=== PATIENT | female | born 1985 | race Asian ===

== ENCOUNTER 2020-05-22 10:31 | Outpatient (CLI) | payer OTHER | END 2020-05-22 20:26 | disposition home or self-care (01) | LOC: MLB 10:31 | DX: N92.5 Other specified irregular menstruation (principal) | CPT/HCPCS: 84703 ==

== ENCOUNTER 2020-08-02 12:08 | Outpatient (CLI) | payer OTHER ==
[2020-08-02 13:22] LABS: APPEARANCE,URINE CLEAR (CLEAR); BILIRUBIN,URINE NEGATIVE (NEGATIVE); BLOOD, URINE NEGATIVE (NEGATIVE); COLOR,URINE YELLOW (YELLOW); LEUKOCYTE ESTERASE ,URINE NEGATIVE (NEGATIVE); NITRITE, URINE NEGATIVE (NEGATIVE); UGLUCOSE NEGATIVE (NEGATIVE)
== END 2020-08-02 16:22 | disposition home or self-care (01) ==
LOC: MLB 12:08
PROVIDERS: ATTEND Obstetrics & Gynecology
DX: R30.9 Painful micturition, unspecified (principal)
CPT/HCPCS: 81003; 87086

== ENCOUNTER 2020-08-31 07:42 | Outpatient (CLI) | payer OTHER ==
[2020-08-31 08:50] LABS: BASOPHILS # (AUTO) 0.1 K/uL (0.00-0.22); BASOPHILS % (AUTO) 0.6 % (0.0-2.0); EOSINOPHILS # (AUTO) 0.1 K/uL (0-0.4); EOSINOPHILS % (AUTO) 1.1 % (0.0-4.0); LYMPHOCYTES # (AUTO) 1.5 K/uL (2.5-16.5); LYMPHOCYTES % (AUTO) 13.5 % (20.5-51.1); MEAN CORPUSCULAR HEMOGLOBIN 32 pg (27-31); MEAN CORPUSCULAR HGB CONC 34 g/dL (33-37); MEAN CORPUSCULAR VOLUME 92.5 fL (80-94); MONOCYTES # (AUTO) 0.5 K/uL (0.8-1.0); MONOCYTES % (AUTO) 4.2 % (1.7-9.3); NEUTROPHILS # (AUTO) 8.8 K/uL (1.8-7.7); NEUTROPHILS % (AUTO) 80.6 % (42.2-75.2); PLATELET COUNT (AUTO) 246 K/uL (140-450); RED BLOOD CELL COUNT(AUTO) 4.11 MIL/uL (4.20-5.40); RED CELL DISTRIBUTION WIDTH 13.4 % (11.6-13.7); WHITE BLOOD COUNT (AUTO) 10.9 K/uL (4.8-10.8)
[2020-09-01 08:07] LABS: HEPATITIS B SURFACE ANTIBODY Non Reactive (.)
[2020-09-01 13:35] LABS: RAPID PLASMA REAGIN NON-REACTIVE (Non Reactiv)
== END 2020-08-31 20:40 | disposition home or self-care (01) ==
LOC: MLB 07:42
PROVIDERS: ATTEND Obstetrics & Gynecology
DX: N30.00 Acute cystitis without hematuria (principal); Z11.3 Encounter for screening for infections with a predominantly sexual mode of transmission
CPT/HCPCS: 36415; 83036; 84702; 85025; 86592; 86706; 86762; 86900; 86901; 87086

== ENCOUNTER 2021-03-22 10:43 | Outpatient (CLI) | payer OTHER ==
[2021-03-22 11:11] LABS: BASOPHILS % (AUTO) 0.6 % (0.0-2.0); EOSINOPHILS # (AUTO) 0.1 K/uL (0-0.4); HEMATOCRIT 45.2 % (36-48); HEMOGLOBIN 14.9 g/dL (12.0-16.0); LYMPHOCYTES # (AUTO) 1.9 K/uL (2.5-16.5); LYMPHOCYTES % (AUTO) 32.7 % (20.5-51.1); MEAN CORPUSCULAR HEMOGLOBIN 31 pg (27-31); MEAN CORPUSCULAR HGB CONC 33 g/dL (33-37); MONOCYTES # (AUTO) 0.3 K/uL (0.8-1.0); MONOCYTES % (AUTO) 5.5 % (1.7-9.3); NEUTROPHILS # (AUTO) 3.4 K/uL (1.8-7.7); NEUTROPHILS % (AUTO) 59.2 % (42.2-75.2); PLATELET COUNT (AUTO) 313 K/uL (140-450); RED BLOOD CELL COUNT(AUTO) 4.91 MIL/uL (4.20-5.40); RED CELL DISTRIBUTION WIDTH 12.6 % (11.6-13.7); WHITE BLOOD COUNT (AUTO) 5.7 K/uL (4.8-10.8)
[2021-03-22 11:14] LABS: BILIRUBIN,URINE NEGATIVE (NEGATIVE); BLOOD, URINE 3+ (NEGATIVE); COLOR,URINE YELLOW (YELLOW); LEUKOCYTE ESTERASE ,URINE TRACE (NEGATIVE); NITRITE, URINE NEGATIVE (NEGATIVE); UGLUCOSE NEGATIVE (NEGATIVE)
[2021-03-22 11:26] LABS: WBC,URINE 0-5 /HPF (0-5)
[2021-03-22 11:28] LABS: APPEARANCE,URINE HAZY (CLEAR)
[2021-03-22 11:42] LABS: ALBUMIN 4.2 g/dL (3.4-5.0); ANION GAP 10.7 (8-16); CARBON DIOXIDE 29.7 mmol/L (21-32); CHOL/HDL RATIO 2.7 (1-4.5); CREATININE 0.9 mg/dL (0.6-1.3); FREE T4 (FREE THYROXINE) 0.74 ng/dL (0.76-1.46); POTASSIUM 4.4 mmol/L (3.5-5.1); THYROID STIMULATING HORMONE 1.85 uIU/mL (0.34-3.74); TOTAL BILIRUBIN 0.6 mg/dL (0.0-1.0)
[2021-03-23 10:06] LABS: TRIIODOTHYRONINE FREE 2.3 pg/mL (2.0-4.4)
[2021-03-23 15:06] LABS: ANTI-NUCLEAR ANTIBODY,DIRECT Negative (Negative)
== END 2021-03-22 21:39 | disposition home or self-care (01) ==
LOC: MLB 10:43
PROVIDERS: ATTEND Internal Medicine Cardiovascular Disease
DX: Z00.00 Encounter for general adult medical examination without abnormal findings (principal); R53.83 Other fatigue; M79.7 Fibromyalgia; M25.59 Pain in other specified joint
CPT/HCPCS: 36415; 80053; 81001; 82306; 83036; 83520; 84439; 84443; 84481; 85025; 86038; 86140; 86430